=== PATIENT | female | born 1990 | race Two or more races ===

== ENCOUNTER → 2022-03-08 | Outpatient (CLI) | payer BC, OTHER ==
[2022-03-08 11:11] LABS: HCG, SERUM QUANTITATIVE < 1.0 MIU/ML
[2022-03-08 11:58] LABS: LUTEINIZING HORMONE 6.3 mIU/mL
[2022-03-08 11:59] LABS: ESTRADIOL 100.3 PG/ML; FOLLICLE STIMULATING HORMONE 9.7 mIU/mL
[2022-03-08 17:53] LABS: PROGESTERONE 0.31 NG/ML
== END ==
LOC: M PLALAB 09:17
PROVIDERS: ATTEND Obstetrics & Gynecology Reproductive Endocrinology
DX: Z31.83 Encounter for assisted reproductive fertility procedure cycle (principal)

== ENCOUNTER → 2022-03-08 | Outpatient (CLI) | payer BC, OTHER | LOC: M WHC 09:11 | PROVIDERS: ATTEND Obstetrics & Gynecology Reproductive Endocrinology | DX: Z31.83 Encounter for assisted reproductive fertility procedure cycle (principal) ==

== ENCOUNTER → 2022-03-14 | Outpatient (CLI) | payer BC, OTHER ==
[2022-03-14 11:08] LABS: ESTRADIOL 548.4 PG/ML; LUTEINIZING HORMONE 12.2 mIU/mL; PROGESTERONE 1.79 NG/ML
== END ==
LOC: M PLALAB 08:34
PROVIDERS: ATTEND Obstetrics & Gynecology Reproductive Endocrinology
DX: Z31.83 Encounter for assisted reproductive fertility procedure cycle (principal)

== ENCOUNTER → 2022-03-14 | Outpatient (CLI) | payer BC, OTHER | LOC: EDUNIT# 07:30 → M WHC 07:42 | PROVIDERS: ATTEND Obstetrics & Gynecology Reproductive Endocrinology | DX: Z31.83 Encounter for assisted reproductive fertility procedure cycle (principal) ==

== ENCOUNTER → 2022-03-16 | Outpatient (CLI) | payer BC, OTHER ==
[2022-03-16 10:54] LABS: ESTRADIOL 1114.8 PG/ML; PROGESTERONE 2.81 NG/ML
== END ==
LOC: M PLALAB 09:14
PROVIDERS: ATTEND Obstetrics & Gynecology Reproductive Endocrinology
DX: Z31.83 Encounter for assisted reproductive fertility procedure cycle (principal)

== ENCOUNTER → 2022-03-16 | Outpatient (CLI) | payer BC, OTHER | LOC: EDUNIT# 09:00 → M WHC 09:11 | PROVIDERS: ATTEND Obstetrics & Gynecology Reproductive Endocrinology | DX: Z31.83 Encounter for assisted reproductive fertility procedure cycle (principal) ==

== ENCOUNTER → 2022-07-20 | Outpatient (CLI) | payer BC, OTHER | LOC: M WHC 09:42 | PROVIDERS: ATTEND Obstetrics & Gynecology Reproductive Endocrinology | DX: Z31.83 Encounter for assisted reproductive fertility procedure cycle (principal) ==

== ENCOUNTER → 2022-07-20 | Outpatient (CLI) | payer BC, OTHER ==
[2022-07-20 11:30] LABS: HCG, SERUM QUANTITATIVE < 2.6 MIU/ML (<4.2)
[2022-07-20 11:34] LABS: FOLLICLE STIMULATING HORMONE 7.4 mIU/ML
[2022-07-20 11:35] LABS: ESTRADIOL 68.7 PG/ML; LUTEINIZING HORMONE 7.7 mIU/ML
[2022-07-20 11:36] LABS: PROGESTERONE 0.23 NG/ML
== END ==
LOC: M LAB 10:42
PROVIDERS: ATTEND Obstetrics & Gynecology Reproductive Endocrinology
DX: Z31.83 Encounter for assisted reproductive fertility procedure cycle (principal)

== ENCOUNTER → 2022-07-27 | Outpatient (CLI) | payer BC, OTHER | LOC: M WHC 09:15 | PROVIDERS: ATTEND Obstetrics & Gynecology Reproductive Endocrinology | DX: Z31.83 Encounter for assisted reproductive fertility procedure cycle (principal); N83.291 Other ovarian cyst, right side; N83.292 Other ovarian cyst, left side ==

== ENCOUNTER → 2022-07-27 | Outpatient (CLI) | payer BC, OTHER ==
[2022-07-27 14:52] LABS: LUTEINIZING HORMONE 60.9 mIU/ML
[2022-07-27 14:58] LABS: PROGESTERONE 0.94 NG/ML
[2022-07-27 15:01] LABS: ESTRADIOL 796.8 PG/ML
== END ==
LOC: M PLALAB 09:15
DX: Z31.83 Encounter for assisted reproductive fertility procedure cycle (principal)

== ENCOUNTER → 2022-08-06 | Outpatient (CLI) | payer BC, OTHER ==
[2022-08-06 14:08] LABS: ESTRADIOL 378.9 PG/ML; PROGESTERONE 33.8 NG/ML
== END ==
LOC: M PLALAB 08:52
PROVIDERS: ATTEND Obstetrics & Gynecology Reproductive Endocrinology
DX: Z31.49 Encounter for other procreative investigation and testing (principal)

== ENCOUNTER → 2022-08-10 | Outpatient (CLI) | payer BC, OTHER ==
[2022-08-10 14:05] LABS: HCG, SERUM QUANTITATIVE 31.8 MIU/ML (<4.2)
[2022-08-10 14:09] LABS: PROGESTERONE 27.73 NG/ML
== END ==
LOC: M PLALAB 09:17
PROVIDERS: ATTEND Obstetrics & Gynecology Reproductive Endocrinology
DX: Z32.00 Encounter for pregnancy test, result unknown (principal)

== ENCOUNTER → 2022-08-13 | Outpatient (CLI) | payer BC, OTHER ==
[2022-08-13 11:16] LABS: HCG, SERUM QUANTITATIVE 173.5 MIU/ML (<4.2)
[2022-08-13 11:20] LABS: THYROID STIMULATING HORMONE 1.324 uIU/ML (0.55-4.78)
[2022-08-13 11:22] LABS: ESTRADIOL 476.5 PG/ML
[2022-08-13 11:23] LABS: PROGESTERONE 41.22 NG/ML
== END ==
LOC: M PLALAB 08:52
PROVIDERS: ATTEND Obstetrics & Gynecology Reproductive Endocrinology
DX: Z32.01 Encounter for pregnancy test, result positive (principal)

== ENCOUNTER → 2022-08-16 | Outpatient (CLI) | payer BC, OTHER ==
[2022-08-16 11:27] LABS: HCG, SERUM QUANTITATIVE 962.9 MIU/ML (<4.2)
[2022-08-16 11:31] LABS: PROGESTERONE 53.46 NG/ML
[2022-08-16 11:32] LABS: ESTRADIOL 341.3 PG/ML
== END ==
LOC: M PLALAB 07:35
PROVIDERS: ATTEND Obstetrics & Gynecology Reproductive Endocrinology
DX: O09.00 Supervision of pregnancy with history of infertility, unspecified trimester (principal)

== ENCOUNTER → 2022-08-16 | Outpatient (CLI) | payer BC, OTHER | LOC: M WHC 07:15 | PROVIDERS: ATTEND Obstetrics & Gynecology Reproductive Endocrinology | DX: O09.00 Supervision of pregnancy with history of infertility, unspecified trimester (principal) ==

== ENCOUNTER → 2022-08-23 | Outpatient (CLI) | payer BC, OTHER ==
[2022-08-23 11:05] LABS: ESTRADIOL 435.9 PG/ML; PROGESTERONE 38.04 NG/ML
[2022-08-23 11:36] LABS: HCG, SERUM QUANTITATIVE 8978.8 MIU/ML (<4.2)
== END ==
LOC: M PLALAB 08:30
PROVIDERS: ATTEND Obstetrics & Gynecology Reproductive Endocrinology
DX: O09.00 Supervision of pregnancy with history of infertility, unspecified trimester (principal); Z3A.01 Less than 8 weeks gestation of pregnancy

== ENCOUNTER → 2022-08-23 | Outpatient (CLI) | payer BC, OTHER | LOC: M WHC 08:45 | PROVIDERS: ATTEND Obstetrics & Gynecology Reproductive Endocrinology | DX: O09.00 Supervision of pregnancy with history of infertility, unspecified trimester (principal); Z3A.01 Less than 8 weeks gestation of pregnancy ==

== ENCOUNTER → 2022-08-30 | Outpatient (CLI) | payer BC, OTHER | LOC: M WHC 07:52 | PROVIDERS: ATTEND Obstetrics & Gynecology Reproductive Endocrinology | DX: N97.9 Female infertility, unspecified (principal) ==

== ENCOUNTER → 2022-08-30 | Outpatient (CLI) | payer BC, OTHER ==
[2022-08-30 11:17] LABS: ESTRADIOL 488.7 PG/ML
[2022-08-30 11:37] LABS: HCG, SERUM QUANTITATIVE 42938.4 MIU/ML (<4.2); PROGESTERONE 67.26 NG/ML
== END ==
LOC: M PLALAB 07:41
PROVIDERS: ATTEND Obstetrics & Gynecology Reproductive Endocrinology
DX: O09.00 Supervision of pregnancy with history of infertility, unspecified trimester (principal)

== ENCOUNTER → 2024-03-06 | Outpatient (CLI) | payer OTHER ==
[2024-03-06 11:05] LABS: APPEARANCE, URINE HAZY (CLEAR); BACTERIA, URINE AUTO NEGATIVE (NEGATIVE); BILIRUBIN, URINE AUTO NEGATIVE (NEGATIVE); BLOOD, URINE BLOOD NEGATIVE (NEGATIVE); COLOR, URINE YELLOW (YELLOW); GLUCOSE, URINE (UA) AUTO NEGATIVE (NEGATIVE); KETONE, URINE AUTO NEGATIVE (NEGATIVE); LEUKOCYTE ESTERASE, URINE AUTO NEGATIVE (NEGATIVE); MUCUS, URINE SMALL (NEGATIVE); NITRITE, URINE AUTO NEGATIVE (NEGATIVE); PROTEIN, URINE AUTO NEGATIVE (NEGATIVE); RBC, URINE AUTO 0 /HPF (0-3); SQUAMOUS EPITHELIAL CELL UR AU 6 /HPF (0-6); UROBILINOGEN, URINE AUTO 0.2 mg/dL (0.0-2.0); WBC, URINE AUTO 1 /HPF (0-3)
[2024-03-06 11:06] LABS: BASO # 0.1 10^3/uL (0.0-0.2); BASO % 1.4 % (0.0-1.0); EOS # 0.1 10^3/uL (0.0-0.5); HEMATOCRIT 41.9 % (36.0-47.0); HEMOGLOBIN 13.8 g/dl (12.0-15.5); LYMPH # 1.7 10^3/uL (1.5-5.0); LYMPH % 23.9 % (24.0-44.0); MEAN CORPUSCULAR HEMOGLOBIN 30.9 pg (27.0-33.0); MEAN CORPUSCULAR HGB CONC 32.9 g/dl (32.0-36.5); MEAN CORPUSCULAR VOLUME 93.7 fl (80.0-96.0); MONO # 0.5 10^3/uL (0.0-0.8); NEUTROPHILS # 4.6 10^3/uL (1.5-8.5); NEUTROPHILS % 65.4 % (36.0-66.0); PLATELET COUNT, AUTOMATED 352 10^3/uL (150-450); RED BLOOD COUNT 4.47 10^6/uL (4.00-5.40)
[2024-03-06 11:20] LABS: ERYTHROCYTE SEDIMENTATION RATE 9 mm/hr (0-20)
[2024-03-06 11:35] LABS: CORTISOL AM 13.5 UG/DL (4.3-22.4)
[2024-03-06 11:37] LABS: C REACTIVE PROTEIN QUANTITATIV < 0.40 MG/DL (<1.0)
[2024-03-06 11:39] LABS: ALBUMIN 4.1 G/DL (3.2-5.2); ALKALINE PHOSPHATASE 88 U/L (46-116); ALT/SGPT 14 U/L (7.0-40); AST/SGOT 15 U/L (<34); BILIRUBIN,TOTAL 0.9 MG/DL (0.3-1.2); BLOOD UREA NITROGEN 17 MG/DL (9-23); CARBON DIOXIDE LEVEL 29 MMOL/L (20-31); CHLORIDE LEVEL 103 MMOL/L (98-107); CHOLESTEROL LEVEL 124 MG/DL (<200); CHOLESTEROL RISK RATIO 1.98 (<5); CREATININE FOR GFR 0.75 MG/DL (0.55-1.30); GLOMERULAR FILTRATION RATE > 60.0 (>60); GLUCOSE, FASTING 72 MG/DL (60-100); HDL CHOLESTEROL 62.6 MG/DL (>40); IRON (FE) 204 UG/DL (50-170); LDL CHOLESTEROL 54.8 MG/DL (<100); NON-HDL-C 61.4 MG/DL; POTASSIUM SERUM 4.5 MMOL/L (3.5-5.1); SODIUM LEVEL 137 MMOL/L (136-145); THYROID STIMULATING HORMONE 1.373 uIU/ML (0.55-4.78); TOTAL PROTEIN 7.3 G/DL (5.7-8.2); TRIGLYCERIDES LEVEL 33 MG/DL (<150); VITAMIN B12 LEVEL 758 PG/ML (211-911)
[2024-03-06 11:40] LABS: RHEUMATOID FACTOR QUANT 9.3 IU/ML (<14); TOTAL 25(OH) VITAMIN D 39.6 NG/ML (20.0-100.0)
[2024-03-06 11:42] LABS: FREE T3 3.2 PG/ML (2.3-4.2)
[2024-03-06 11:43] LABS: THYROID PEROXIDASE ANTIBODY 29 U/ML (<60.0)
[2024-03-09 16:48] LABS: THRYOGLOBULIN ANTIBODIES (ATA) < 1 IU/mL (< or = 1); THYROGLOBULIN QUANTITATIVE 32.5 ng/mL (2.8-40.9)
[2024-03-10 13:02] LABS: ANA PATTERN Nuclear, Speckled (NEGATIVE); ANA SCREEN, IFA POSITIVE (NEGATIVE)
[2024-03-11 03:43] LABS: COPPER PLASMA 128 mcg/dL (70-175); ZINC PLASMA 84 mcg/dL (60-130)
== END ==
LOC: M PLALAB 09:01
PROVIDERS: ATTEND Internal Medicine
DX: H54.7 Unspecified visual loss (principal); R19.7 Diarrhea, unspecified; F41.1 Generalized anxiety disorder; R53.81 Other malaise; E55.9 Vitamin D deficiency, unspecified; M72.2 Plantar fascial fibromatosis; E16.2 Hypoglycemia, unspecified